=== PATIENT | female | born 1940 | race Caucasian/White ===

== ENCOUNTER 2017-05-06 07:30 | Inpatient (IN) | payer MEDICARE, BC ==
[~2017-05-06] VITALS: Ht 162.6 cm; Wt 95.3 kg
[2017-06-16] MEDS ORDERED: GABA100C4 PO (11:51)
[2017-06-16] MEDS ORDERED: VITA500T83 PO (11:51)
[2017-06-16] MEDS ORDERED: METF500T PO (11:51)
[2017-06-16] MEDS ORDERED: PRAV40TA2 PO (11:51)
[2017-06-16] MEDS ORDERED: OCUVTAB4 PO (11:51)
[2017-06-16] MEDS ORDERED: DILT120C9 PO (11:51)
[2017-06-16] MEDS ORDERED: VENTAER INH (11:51)
[2017-06-16] MEDS ORDERED: MONT10TA4 PO (11:51)
[2017-06-16] MEDS ORDERED: IRBE300T11 PO (11:51)
[2017-06-16] MEDS ORDERED: OMEGCAP PO (11:51)
[2017-06-16] MEDS ORDERED: HYDR25TA5 PO (11:51)
[2017-06-16] MEDS ORDERED: CALC600T10 PO (11:51)
[2017-06-17] MEDS ORDERED: CHLORHEXIDINE GLUCONATE 4% SOLN 120 ML BTL TOPICAL SCH (06:00)
[2017-06-17] MEDS ORDERED: SODIUM CHLORID 0.9% 500 ML IV PRN (06:00)
[2017-06-17] MEDS ORDERED: VANCOMYCIN 1 GM/200 ML INJ 200 ML IV SCH (06:00)
[2017-06-17] MEDS ORDERED: CHLORHEXIDINE GLUCONATE 2 % 1 PACK (2 CLOTHS) TOPICAL PRN (06:00)
[2017-06-17] MEDS ORDERED: POVIDONE IODINE 5% (ANTISEPSIS KIT) 4 APPLICATIONS EACH NARE PRN (06:00)
[2017-06-17] MEDS: LACTATED RINGER'S 1000 ML IV PRN ×2 (06:30→20:53)
[2017-06-17] MEDS ORDERED: PROPOFOL 500 MG/50 ML INJ 250 ML ONE (07:13)
[2017-06-17] MEDS ORDERED: ACETAMINOPHEN 1000 MG/100 ML 100 ML IV ONE (07:13)
[2017-06-17] MEDS ORDERED: GENTAMICIN SULFATE 80 MG/2 ML VIAL ONE (07:17)
[2017-06-17] MEDS ORDERED: ceFAZolin 2 GM PREMIX 50 ML IV SCH (08:00)
[2017-06-17] MEDS ORDERED: ceFAZolin INJ 1,000 MG VIAL IV ONE ×4 (09:17→17:03)
[2017-06-17] MEDS ORDERED: SUCCINYLCHOLINE CHLORIDE 100 MG/5 ML SYRINGE IV PUSH ONE (12:00)
[2017-06-17] MEDS ORDERED: PHENYLEPHRINE HCL 10 MG/ML VIAL IV ONE (12:00)
[2017-06-17] MEDS ORDERED: PHENYLEPH/NS 1000 MCG/10 ML SYR IV ONE (12:00)
[2017-06-17] MEDS ORDERED: LIDOCAINE HCL 1% PF 5 ML SYRINGE OTHER ONE (12:00)
[2017-06-17] MEDS ORDERED: PROPOFOL 200 MG/20 ML AMP IV ONE (12:00)
[2017-06-17] MEDS ORDERED: ROCURONIUM INJ 50 MG/5 ML SYRINGE IV PUSH ONE (12:00)
[2017-06-17] MEDS ORDERED: ONDANSETRON HCL 4 MG/2 ML VIAL IV ONE (12:00)
[2017-06-17] MEDS ORDERED: ePHEDrine/NS 25 MG/5 ML SYRINGE IV ONE (12:00)
[2017-06-17] MEDS ORDERED: LACTATED RINGER'S 1000 ML INJ 4,000 ML IV ONE (12:00)
[2017-06-17] MEDS ORDERED: DEXAMETHASONE SOD PHOS 4 MG/ML VIAL IV ONE ×2 (12:00)
[2017-06-17] MEDS ORDERED: PROPOFOL 500 MG/50 ML INJ 150 ML ONE (12:23)
[2017-06-17] MEDS ORDERED: ceFAZolin 1,000 MG/NS 100 ML IV ONE ×4 (14:00→18:15)
[2017-06-17 14:06] LABS: HEMATOCRIT 23.7 % (35.0-46.0); HEMOGLOBIN 8.1 GM/DL (11.6-15.3)
[2017-06-17] MEDS ORDERED: VANCOMYCIN HCL 1000 MG VIAL ONE (14:40)
[2017-06-17] MEDS ORDERED: PROPOFOL 200 MG/20 ML AMP ONE (18:47)
[2017-06-17] MEDS ORDERED: MIDAZOLAM HCL 2 MG/2 ML VIAL ONE (18:57)
[2017-06-17 19:30] VITALS: O2SAT 98
[2017-06-17] MEDS ORDERED: ONDANSETRON HCL 4 MG/2 ML VIAL IV PUSH PRN (19:30)
[2017-06-17] MEDS ORDERED: MORPHINE SULFATE 30 MG/30 ML PCA IV SCH (19:30)
[2017-06-17] MEDS ORDERED: Post-op Orders (for Pharmacy) XX ONE (19:30)
[2017-06-17] MEDS ORDERED: BISACODYL 10 MG SUPP RECTAL PRN (19:30)
[2017-06-17] MEDS ORDERED: SODIUM CHLORIDE 0.9% FLUSH 10 ML FLUSH IV FLUSH PRN (19:30)
[2017-06-17] MEDS ORDERED: CYCLOBENZAPRINE HCL 10 MG TAB PO PRN (19:30)
[2017-06-17] MEDS ORDERED: NALOXONE HCL 0.4 MG/ML AMP IV PUSH PRN (19:30)
--- NOTE | 2017-06-17 19:33 | HHI.PR ---
cc: Breanna Alfaro MD Immediate Post Op Note Procedure Date: Jun 17, 2017 Pre Op Diagnosis: L5-S1 grade IV spondylolisthesis with significant central and foraminal stenosis L4-L5 grade II spondylolisthesis with significant central and foraminal stenosis L3-L4 central and foraminal stenosis Bilateral lower extremity radiculopathy Post Op Diagnosis: L5-S1 grade IV spondylolisthesis with significant central and foraminal stenosis L4-L5 grade II spondylolisthesis with significant central and foraminal stenosis L3-L4 central and foraminal stenosis Bilateral lower extremity radiculopathy Surgeon: Breanna Alfaro Marketing Manager(s): Cam Yancey Procedure: L3-L5 laminectomy, facetectomy and foraminotomies L5-S1 Arias laminectomy L3-L4, L4-L5 TLIF with interbody cage L3-S1 instrumented posterolateral fusion Complications: none Specimen(s) removed: none Estimated blood loss: 1500cc Anesthesia: General Drains: Hemovac IVF Patient to: PACU Patient Condition: Good Implant/Devices: SEE IMPLANT LOG (if applicable) Date/Time of Procedure: SEE SURGICAL CARE RECORD Breanna Alfaro MD Jun 17, 2017 19:33
[2017-06-17] MEDS ORDERED: *morphine SULFATE 4 MG/ML PERIprocedure ONLY ONE (19:53)
--- NOTE | 2017-06-17 20:24 | RADRPT ---
EXAM DATE/TIME: 06/17/2017 20:01 [facility] COMPARISON: No previous studies available for comparison. INDICATIONS : Post ET tube placement. MEDICAL HISTORY : None. SURGICAL HISTORY : None. ENCOUNTER: Initial ACUITY: 1 day PAIN SCORE: 0/10 LOCATION: Bilateral chest FINDINGS: Consolidation and small effusion seen at the left lung base. Right lung is clear. No pneumothorax. Heart size within normal limits. Endotracheal tube tip is approximately 4 cm above the cat. CONCLUSION: Consolidation and small effusion of the left lung base. Endotracheal tube tip is approximately 4 cm a timmy the cat. Rufino Gonzalez MD on June 17, 2017 at 20:21 Board Certified Radiologist. This report was verified electronically.
[2017-06-17 20:26] LABS: AUTOMATED NEUTROPHIL # 12.7 TH/MM3 (1.8-7.7); BASOPHIL % 0.2 % (0.0-2.0); HEMOGLOBIN 10.1 GM/DL (11.6-15.3); LYMPH % 8.2 % (9.0-44.0); LYMPHOCYTE # 1.2 TH/MM3 (1.0-4.8); MEAN CELL VOLUME 88.4 FL (80.0-100.0); MEAN CORPUSCULAR HEMOGLOBIN 29.7 PG (27.0-34.0); MEAN CORPUSCULAR HGB CONC 33.6 % (32.0-36.0); MEAN PLATELET VOLUME 9.1 FL (7.0-11.0); MONO % 5.1 % (0.0-8.0); MONOCYTE # 0.8 TH/MM3 (0-0.9); NEUT % 86.5 % (16.0-70.0); PLATELET COUNT 147 TH/MM3 (150-450); RED CELL DISTRIBUTION WIDTH 14.3 % (11.6-17.2); WHITE BLOOD COUNT 14.7 TH/MM3 (4.0-11.0)
[2017-06-17 20:55] LABS: INTERNATIONAL NORMALIZED RATIO 1.1 RATIO; PROTHROMBIN TIME - PATIENT 10.7 SEC (9.8-11.6)
--- NOTE | 2017-06-17 20:55 | RADRPT ---
EXAM DATE/TIME: 06/17/2017 09:57 [facility] COMPARISON: No previous studies available for comparison. INDICATIONS : L3-S1 Posterior lumbar fusion. MEDICAL HISTORY : Hypertension. Diabetes mellitus type II. Arthritis. Asthma. SURGICAL HISTORY : Tonsillectomy. Cholecystectomy. ENCOUNTER: Initial ACUITY: 1 day PAIN SCORE: 10/10 LOCATION: Lumbar spine. FINDINGS: Discectomy and fusion procedure with posterior instrumentation seen from L3-S1. There is grade 2 spon dylolisthesis at L5/S1, presumably nonacute. Alignment is otherwise normal. Interbody instrumentation seen at L3/L4 and L4/L5. CONCLUSION: Lumbosacral fusion as above without evidence of acute complication. Grade 2 spondylolisthesis at L5/S 1. Rufino Gonzalez MD on June 17, 2017 at 20:51 Board Certified Radiologist. This report was verified electronically.
[2017-06-17] MEDS: SODIUM CHLORIDE 0.9% FLUSH 10 ML FLUSH IV FLUSH SCH (21:00)
[2017-06-17] MEDS ORDERED: DO NOT ADM ANY ANTICOAGULANT DRUGS PRN (21:15)
[2017-06-17] MEDS: LACTATED RINGER'S 1000 ML INJ 1,000 ML IV SCH (21:15)
[2017-06-17 22:00] VITALS: PULSE 80
[2017-06-17] MEDS: PCA - TOTAL MG MORPHINE DELIVERED PER SHIFT SCH (22:00)
--- NOTE | 2017-06-17 22:38 | PD.CONS ---
HPI Service Critical Care Medicine Consult Requested By Primary Care Physician Abhishek Earl MD History of Present Illness 77-year-old female with past medical history of diabetes type 2, hypertension, dyslipidemia underwent L3-L5 laminectomy, facetectomy and foraminotomies L5-S1 Arias laminectomy L3-L4, L4-L5 TLIF with interbody cage, and L3-S1 instrumented posterolateral fusion. She was successfully extubated in the PACU however due to prolonged anesthesia in a prone position and significant facial edema she is admitted to ICU postoperatively for airway management and observation. Review of Systems Constitutional: DENIES: Diaphoretic episodes, Fatigue, Fever, Weight gain, Weight loss, Chills, Dizziness, Change in appetite, Night Sweats Endocrine: DENIES: Abnorml menstrual pattern, Heat/cold intolerance, Polydipsia , Polyuria, Polyphagia Eyes: DENIES: Blurred vision, Diplopia, Eye inflammation, Eye pain, Vision loss , Photosensitivity, Double Vision Ears, nose, mouth, throat: DENIES: Tinnitus, Hearing loss, Vertigo, Nasal discharge, Oral lesions, Throat pain, Hoarseness, Ear Pain, Running Nose, Epistaxis, Sinus Pain, Toothache, Odynophagia Respiratory: DENIES: Apneas, Cough, Snoring, Wheezing, Hemoptysis, Sputum production, Shortness of breath Cardiovascular: DENIES: Chest pain, Palpitations, Syncope, Dyspnea on Exertion , PND, Lower Extremity Edema, Orthopnea, Claudication Gastrointestinal: DENIES: Abdominal pain, Black stools, Bloody stools, Constipation, Diarrhea, Nausea, Vomiting, Difficulty Swallowing, Anorexia Genitourinary: DENIES: Abnormal vaginal bleeding, Dysmenorrhea, Dyspareunia, Sexual dysfunction, Urinary frequency, Urinary incontinence, Urgency, Hematuria , Dysuria, Nocturia, Vaginal discharge Musculoskeletal: DENIES: Joint pain, Muscle aches, Stiffness, Joint Swelling, Back pain, Neck pain Integumentary: DENIES: Abnormal pigmentation, Pruritus, Rash, Nail changes, Breast masses, Breast skin changes, Nipple discharge Hematologic/lymphatic: DENIES: Bruising, Lymphadenopathy Immunologic/allergic: DENIES: Eczema, Urticaria Neurologic: COMPLAINS OF: Abnormal gait, Poor Balance, DENIES: Headache, Localized weakness, Paresthesias, Seizures, Speech Problems, Tremor Psychiatric: DENIES: Anxiety, Confusion, Mood changes, Depression, Hallucinations, Agitation, Suicidal Ideation, Homicidal Ideation, Delusions Past Family Social History Allergies: Coded Allergies: Beta-Blockers (Beta-Adrenergic Bloc (Verified Allergy, Severe, Rash, ) amoxicillin (Verified Allergy, Severe, ITCHING, RASH, 06/17/17) codeine (Verified Allergy, Severe, ITCHING, RASH, THROAT CLOSES, 06/17/17) hydrocodone (Verified Allergy, Severe, ITCHING, RASH, THROAT CLOSES, ) levofloxacin (Verified Allergy, Severe, Rash, 06/17/17) quinapril (Verified Allergy, Severe, COUGH, ASTHMA ATTACK, 06/17/17) scallops (Verified Allergy, Severe, 06/17/17) acebutolol (Verified Adverse Reaction, Severe, ASTHMA ATTACK, 06/17/17) atenolol (Verified Adverse Reaction, Severe, ASTHMA ATTACK, 06/17/17) atorvastatin (Verified Adverse Reaction, Severe, MYALGIAS, 06/17/17) betaxolol (Verified Adverse Reaction, Severe, ASTHMA ATTACK, 06/17/17) carvedilol (Verified Adverse Reaction, Severe, ASTHMA ATTACK, 06/17/17) dabigatran etexilate (Verified Adverse Reaction, Severe, STOMACH UPSET, ) labetalol (Verified Adverse Reaction, Severe, ASTHMA ATTACK, 06/17/17) metoprolol (Verified Adverse Reaction, Severe, ASTHMA ATTACK, 06/17/17) nebivolol (Verified Adverse Reaction, Severe, ASTHMA ATTACK, 06/17/17) pindolol (Verified Adverse Reaction, Severe, ASTHMA ATTACK, 06/17/17) propranolol (Verified Adverse Reaction, Severe, ASTHMA ATTACK, 06/17/17) sotalol (Verified Adverse Reaction, Severe, ASTHMA ATTACK, 06/17/17) timolol (Verified Adverse Reaction, Severe, ASTHMA ATTACK, 06/17/17) oxycodone (Verified Adverse Reaction, Intermediate, Itching, 06/17/17) Past Medical History Hypertension Dyslipidemia Type 2 diabetes Asthma Osteoarthritis Past Surgical History Cholecystectomy Right total knee arthroplasty Tonsillectomy Reported Medications Reported Meds & Active Scripts Active Reported Gabapentin 100 Mg Cap 100 Mg PO TID Vitamin C ER (Ascorbic Acid) 500 Mg Zander 1,000 Mg PO Preservision Areds (Multiple Vitamins W/ Minerals) 1 Tab 1 Tab PO BID Ewen-3 Fish Oil/Vitamin (Fish Oil-Cholecalciferol) 1,000-1,000 Mg Cap 1 Cap PO BID Diltiazem ER 12 HR (Diltiazem HCl) 120 Mg Caper 240 Mg PO BID Calcium + D3 (Calcium Carbonate-Cholecalciferol) 600-200 Mg-Unit Tab 1,200 Tab PO BID Ventolin Hfa 18 GM Inh (Albuterol Sulfate) 90 Mcg/Act Aer 2 Puff INH Q4-6H PRN Pravastatin 40 Mg Tab 40 Mg PO HS Montelukast (Montelukast Sodium) 10 Mg Tab 10 Mg PO DAILY Metformin (Metformin HCl) 500 Mg Tab 500 Mg PO DAILY With a meal Irbesartan 300 Mg Tab 300 Mg PO DAILY Hydrochlorothiazide 25 Mg Tab 25 Mg PO DAILY Active Ordered Medications Current Medications Medications (Trade) Dose Ordered Sig/Vanesa Route PRN Reason Start Time Stop Time Status Last Admin Dose Admin Chlorhexidine Gluconate (Chlorhexidine 2% Cloth) 3 pack SUPERVISOR SMOKE CONTROL PRN TOPICAL SEE LABEL COMMENTS 06/17/17 06:00 06/20/17 05:59 06/17/17 06:00 Sodium Chloride (NS Flush) 2 ml UNSCH PRN IV FLUSH FLUSH AFTER USING IV ACCESS 06/17/17 19:30 Sodium Chloride (NS Flush) 2 ml BID IV FLUSH 06/17/17 21:00 06/17/17 21:00 Cefazolin Sodium 1000 mg/Sodium Chloride 100 ml @ 200 mls/hr Q8H IV 06/18/17 01:00 06/18/17 17:29 Multivitamins/ Minerals Therapeutic (Theragran M Tab) 1 tab BID PO 06/18/17 09:00 08/17/17 08:59 Ondansetron HCl (Zofran Inj) 4 mg Q6H PRN IV PUSH NAUSEA OR VOMITING 06/17/17 19:30 Docusate Sodium (Colace) 100 mg BID PO 06/18/17 21:00 Bisacodyl (Dulcolax Supp) 10 mg DAILY PRN RECTAL CONSTIPATION 06/17/17 19:30 Naloxone HCl (Narcan Inj) 0.4 mg UNSCH PRN IV PUSH RESPIRATORY RATE LESS THAN 10 06/17/17 19:30 Morphine Sulfate (Morphine 1 Mg/ ml ANIMAL THERAPIST) 30 mg UNSCH IV 4/24/18 19:30 ANIMAL THERAPIST Dosage Infused (Pha) 1 Q8HR .XX 06/17/17 22:00 06/17/17 22:00 Cyclobenzaprine HCl (Flexeril) 10 mg Q8H PRN PO SPASM 06/17/17 19:30 Miscellaneous Information ALL NURSING DEPARTME... UNSCH PRN .XX SEE LABEL COMMENTS 06/17/17 21:15 06/18/17 21:14 Lactated Ringer's 1,000 ml @ 100 mls/hr Q10H IV 06/17/17 22:00 06/17/17 21:15 Albuterol Sulfate (Proair Hfa Inh) 2 puff Q6H PRN INH SHORTNESS OF BREATH 06/17/17 22:45 Gabapentin (Neurontin) 100 mg TID PO 06/18/17 09:00 Montelukast Sodium (Singulair) 10 mg DAILY PO 06/18/17 09:00 Pravastatin Sodium (Pravachol) 40 mg HS PO 06/18/17 21:00 Calcium/Vitamin D (Oscal-D 250-125) 500 mg BID PO 06/18/17 09:00 Diltiazem HCl (Cardizem Cd) 240 mg BID PO 06/17/17 23:00 Losartan Potassium (Cozaar) 100 mg DAILY PO 06/18/17 09:00 Dextrose (D50w (Vial) Inj) 50 ml UNSCH PRN IV PUSH HYPOGLYCEMIA-SEE COMMENTS 06/17/17 22:45 Glucagon (Glucagon Inj) 1 mg UNSCH PRN OTHER HYPOGLYCEMIA-SEE COMMENTS 06/17/17 22:45 Insulin Aspart (NovoLOG SUPPLEMENTAL SCALE) 1 ACHS SLIDING SCALE SQ 06/18/17 08:00 Family History Family history positive of cancer, CVA and heart disease Social History Remote history of smoking, currently does not smoke. She occasionally drinks alcohol. She denies illicit substance abuse Physical Exam Vital Signs Vital Signs Date Time Temp Pulse Resp B/P (MAP) Pulse Ox O2 Delivery O2 Flow Rate FiO2 06/17/17 20:15 Mask 40 06/17/17 19:35 97.8 81 20 92/53 (66) 97 Mechanical Ventilator 50 137/47 (77) 06/17/17 19:30 98 50 06/17/17 06:48 98.5 75 18 141/67 (91) 97 Physical Exam GENERAL: Well-nourished, well-developed patient. SKIN: Warm and dry. HEAD: Normocephalic. EYES: No scleral icterus. No injection or drainage. NECK: Supple, trachea midline. No JVD or lymphadenopathy. CARDIOVASCULAR: Regular rate and rhythm without murmurs, gallops, or rubs. RESPIRATORY: Breath sounds equal bilaterally. No accessory muscle use. GASTROINTESTINAL: Abdomen soft, non-tender, nondistended. MUSCULOSKELETAL: No cyanosis, or edema. BACK: Nontender without obvious deformity. NEURO EXAM: GCS: 15 Mental Status: The patient is alert and oriented to person, place, and time with normal speech. Cranial Nerves: Visual acuity intact bilaterally. Visual alex normal in all quadrants. Pupils are round, reactive to light. Extraocular movements are intact without ptosis. Hearing is normal bilaterally. Voice is normal. Tongue protrudes midline and moves symmetrically. Laboratory Laboratory Tests Test 06/17/17 13:52 06/17/17 17:45 06/17/17 19:45 06/17/17 20:00 Hemoglobin 8.1 10.1 Hematocrit 23.7 30.0 Blood Gas Puncture Site ART LINE ART LINE Blood Gas Patient Temperature 98.6 98.6 Blood Gas HCO3 23 20 Blood Gas Base Excess -2.1 -5.7 Blood Gas Oxygen Saturation 96 96 Arterial Blood pH 7.35 7.27 Arterial Blood Partial Pressure CO2 42 45 Arterial Blood Partial Pressure O2 166 116 Arterial Blood Oxygen Content 10.3 14.8 Arterial Blood Carboxyhemoglobin 1.2 0.8 Arterial Blood Methemoglobin 1.6 1.5 Blood Gas Hemoglobin 7.4 10.9 Oxygen Delivery Device VENTILATOR VENTILATOR Blood Gas Ventilator Setting SEE COMMENTS Blood Gas Inspired Oxygen 50 White Blood Count 14.7 Red Blood Count 3.40 Mean Corpuscular Volume 88.4 Mean Corpuscular Hemoglobin 29.7 Mean Corpuscular Hemoglobin Concent 33.6 Red Cell Distribution Width 14.3 Platelet Count 147 Mean Platelet Volume 9.1 Neutrophils (%) (Auto) 86.5 Lymphocytes (%) (Auto) 8.2 Monocytes (%) (Auto) 5.1 Eosinophils (%) (Auto) 0.0 Basophils (%) (Auto) 0.2 Neutrophils # (Auto) 12.7 Lymphocytes # (Auto) 1.2 Monocytes # (Auto) 0.8 Eosinophils # (Auto) 0.0 Basophils # (Auto) 0.0 CBC Comment DIFF FINAL Differential Comment Prothrombin Time 10.7 Prothromb Time International Ratio 1.1 Fibrinogen 226 Test 06/17/17 22:00 Result Diagram: 06/17/171999 Imaging Last 24 hours Impressions Lumbar Spine X-Ray 06/17/17 0000 Signed Impressions: Service Date/Time: Saturday, June 17, 2017 09:57 - CONCLUSION: Lumbosacral fusion as above without evidence of acute complication. Grade 2 spondylolisthesis at L5/S1. Rufino Gonzalez MD Chest X-Ray 06/17/17 0000 Signed Impressions: Service Date/Time: Saturday, June 17, 2017 20:01 - CONCLUSION: Consolidation and small effusion of the left lung base. Endotracheal tube tip is approximately 4 cm above the cat. Rufino Gonzalez MD Assessment and Plan Assessment and Plan Hypertension -Resume losartan and diltiazem Asthma -Montelukast Sodium -Albuterol Sulfate Diabetes type 2 -Hold metformin while in the ICU -Insulin sliding scale Spinal stenosis -Status post laminectomy -Cyclobenzaprine -Morphine Sulfate as needed -Gabapentin Dyslipidemia -Pravastatin DVT GI prophylaxis -Abdulkadir's and SCDs -Pharmacological DVT prophylaxis per surgeon -Early aggressive mobilization -ADA diet Critical Care: The total critical care time was 35 minutes. Time to perform other separately billable procedures was not included in the critical care time. Tree Rodriguez MD Jun 17, 2017 10:38 pm
[2017-06-17] MEDS ORDERED: DEXTROSE 50% IN WATER 50 ML VIAL(D50) IV PUSH PRN (22:45)
[2017-06-17] MEDS ORDERED: ALBUTEROL SULFATE 90 MCG/ACT HFA 8 GM INHALER INH PRN (22:45)
[2017-06-17] MEDS ORDERED: GLUCAGON 1 MG/ML VIAL OTHER PRN (22:45)
[2017-06-17] MEDS: DILTIAZEM-CD 240 MG CAP ER PO SCH (23:32)
[2017-06-18] VITALS (10 sets, daily range): BP systolic 106–133; BP diastolic 41–62; PULSE 70–94; RESP 18–24; TEMP 97.8–98.6; O2SAT 58–99
[2017-06-18 05:08] LABS: AUTOMATED NEUTROPHIL # 8.9 TH/MM3 (1.8-7.7); BASOPHIL % 0.1 % (0.0-2.0); HEMATOCRIT 29.3 % (35.0-46.0); HEMOGLOBIN 10.1 GM/DL (11.6-15.3); LYMPH % 5.2 % (9.0-44.0); LYMPHOCYTE # 0.5 TH/MM3 (1.0-4.8); MEAN CELL VOLUME 87.6 FL (80.0-100.0); MEAN CORPUSCULAR HGB CONC 34.3 % (32.0-36.0); MEAN PLATELET VOLUME 9.3 FL (7.0-11.0); MONOCYTE # 0.3 TH/MM3 (0-0.9); NEUT % 91.7 % (16.0-70.0); PLATELET COUNT 136 TH/MM3 (150-450); RED BLOOD COUNT 3.35 MIL/MM3 (4.00-5.30); RED CELL DISTRIBUTION WIDTH 14.2 % (11.6-17.2); WHITE BLOOD COUNT 9.7 TH/MM3 (4.0-11.0)
[2017-06-18 05:29] LABS: ALBUMIN 2.3 GM/DL (3.4-5.0); BICARBONATE 21.3 MEQ/L (21.0-32.0); CALCIUM 7.1 MG/DL (8.5-10.1); CALCIUM-PROTEIN CORRECTED 8.3 MG/DL (8.5-10.1); CREATININE 1.47 MG/DL (0.50-1.00); MAGNESIUM 2.2 MG/DL (1.5-2.5); PHOSPHORUS 3.4 MG/DL (2.5-4.9); TOTAL BILIRUBIN ADULT 0.2 MG/DL (0.2-1.0); TOTAL PROTEIN 4.9 GM/DL (6.4-8.2)
[2017-06-18] MEDS: PCA - TOTAL MG MORPHINE DELIVERED PER SHIFT SCH ×3 (06:00→20:10)
[2017-06-18] MEDS: LACTATED RINGER'S 1000 ML INJ 1,000 ML IV SCH ×2 (07:09→18:00)
--- NOTE | 2017-06-18 07:29 | PD.ORT.PN ---
Subjective Subjective Remarks Patient resting comfortably this morning. States her pain is well-controlled. She was successfully extubated in the postop area. She has not been mobilized yet Objective Vitals Vital Signs Date Time Temp Pulse Resp B/P (MAP) Pulse Ox O2 Delivery O2 Flow Rate FiO2 06/18/17 06:00 16 06/18/17 06:00 82 06/18/17 04:00 98.3 84 21 126/57 (80) 94 Arterial Line 06/18/17 04:00 84 06/18/17 02:00 92 06/18/17 00:00 86 06/18/17 00:00 98.6 86 18 133/62 (85) 96 06/17/17 22:00 80 06/17/17 22:00 19 06/17/17 21:30 97.5 78 20 99 Simple Mask 6 06/17/17 21:15 83 22 98/50 (66) 100 Simple Mask 6 101/34 (56) 06/17/17 21:00 78 22 116/58 (77) 100 Mechanical Ventilator 40 110/76 (87) 06/17/17 20:45 78 24 130/63 (85) 100 Mechanical Ventilator 40 121/47 (71) 06/17/17 20:30 79 28 122/58 (79) 100 Mechanical Ventilator 40 113/41 (65) 06/17/17 20:30 40 06/17/17 20:15 Mask 40 06/17/17 20:15 76 28 115/54 (74) 100 Mechanical Ventilator 50 106/36 (59) 06/17/17 20:00 75 24 108/53 (71) 99 Mechanical Ventilator 50 101/37 (58) 06/17/17 19:45 75 21 130/63 (85) 98 Mechanical Ventilator 50 128/46 (73) 06/17/17 19:35 97.8 81 20 92/53 (66) 97 Mechanical Ventilator 50 137/47 (77) 06/17/17 19:35 50 06/17/17 19:30 98 50 I/O 06/17/17 06/17/17 06/17/17 06/18/17 06/18/17 06/18/17 07:00 15:00 23:00 07:00 15:00 23:00 Intake Total 5666 ml 200 ml 1060 ml Output Total 2340 ml 635 ml Balance 3326 ml -435 ml 1060 ml Intake Oral 200 ml IV Total 500 ml 1060 ml Autotransfusion 756 ml Packed Cells 900 ml Blood Product IV Normal Saline Flush 10 ml Other 3500 ml Output Urine Total 750 ml 400 ml Drainage Total 90 ml 235 ml Estimated Blood Loss 1500 ml # Bowel Movements 0 Result Diagram: 06/18/17 0450 06/18/17 0450 Other Results Laboratory Tests Test 06/17/17 20:00 Prothromb Time International Ratio 1.1 RATIO Prothrombin Time 10.7 SEC (9.8-11.6) Objective Remarks awake, alert, no acute distress Bilateral lower extremities: 5 out of 5 strength EHL, FHL, tib ant, gastrocs, hamstrings and quads. Sensation appears grossly intact. Brisk cap refill. Negative Homans. Urinary catheter remains in place Dressing intact over her spine and drain remains in place. Assessment & Plan Assessment and Plan 77-year-old female, postop day 1 status post L3-S1 decompression with instrumented fusion 1. Plan for mobilization starting today. When patient is out of bed should have her back brace on. Patient can sit on edge of bed to put brace on. No significant bending, lifting or twisting. PT for mobilization 2. Montanez to remain in place until patient is able to mobilize hopefully later today versus tomorrow 3. Drain to remain in place today. Likely plan for removal tomorrow pending output 4. Mechanical DVT prophylaxis. No chemical anticoagulation given recent spine surgery 5. Hemoglobin stable this morning after transfusion yesterday. Will monitor. 6. Will continue CHEMISTRY TUTOR today, with likely transition to oral tomorrow 7. Appreciate ICU management. Okay for transfer to orthopedic/neuro floor once felt stable by ICU. Breanna Alfaro MD Jun 18, 2017 07:29
[2017-06-18] MEDS: GABAPENTIN 100 MG CAP PO SCH ×3 (08:52→17:59)
[2017-06-18] MEDS: LOSARTAN 50 MG TAB PO SCH (08:53)
[2017-06-18] MEDS: DILTIAZEM-CD 240 MG CAP ER PO SCH ×2 (08:53→20:09)
[2017-06-18] MEDS: MONTELUKAST SODIUM 10 MG TAB PO SCH (08:53)
[2017-06-18] MEDS: MULTIVITAMINS/MINERALS THERAPEUTIC TAB PO SCH ×2 (08:53→20:09)
[2017-06-18] MEDS: CALCIUM/VITAMIN D 250 MG/125 U TAB PO SCH ×2 (08:54→20:09)
[2017-06-18] MEDS: SODIUM CHLORIDE 0.9% FLUSH 10 ML FLUSH IV FLUSH SCH ×2 (08:54→20:09)
[2017-06-18] MEDS ORDERED: NON-FORMULARY DRUG (Fish Oil-Cholecalciferol (Omega-3 Fish Oil/Vitamin) 1 CAP) PO SCH (09:00)
[2017-06-18] MEDS: INSULIN ASPART SUPPLEMENTAL SCALE SQ SCH ×3 (12:00→20:09)
--- NOTE | 2017-06-18 16:30 | HHI.CCPN ---
Subjective Remarks/Hospital Course 06/17: 77-year-old female with past medical history of diabetes type 2, hypertension, dyslipidemia underwent L3-L5 laminectomy, facetectomy and foraminotomies L5-S1 Arias laminectomy L3-L4, L4-L5 TLIF with interbody cage, and L3-S1 instrumented posterolateral fusion. She was successfully extubated in the PACU however due to prolonged anesthesia in a prone position and significant facial edema she is admitted to ICU postoperatively for airway management and observation. 06/18: On room air this morning. Breathing comfortably. Objective Vital Signs Date Time Temp Pulse Resp B/P (MAP) Pulse Ox O2 Delivery O2 Flow Rate FiO2 06/18/17 10:00 94 06/18/17 09:30 97 21 06/18/17 08:00 98.3 21 125/41 (69) 06/18/17 07:00 Room Air 06/17/17 21:30 6 Intake and Output 06/18/17 06/18/17 06/19/17 08:00 16:00 00:00 Intake Total 1260 ml Output Total 635 ml Balance 625 ml Result Diagram: 06/18/17 0450 06/18/17 0450 Other Results Laboratory Tests Test 06/17/17 17:45 06/17/17 19:45 Blood Gas Puncture Site ART LINE ART LINE Blood Gas Patient Temperature 98.6 98.6 Blood Gas HCO3 23 mmol/L (22-26) 20 mmol/L (22-26) Blood Gas Base Excess -2.1 mmol/L (-2-2) -5.7 mmol/L (-2-2) Blood Gas Oxygen Saturation 96 % (90-100) 96 % (90-100) Arterial Blood pH 7.35 (7.380-7.420) 7.27 (7.380-7.420) Arterial Blood Partial Pressure CO2 42 mmHg (38-42) 45 mmHg (38-42) Arterial Blood Partial Pressure O2 166 mmHg (61-120) 116 mmHg (61-120) Arterial Blood Oxygen Content 10.3 Vol % (12.0-20.0) 14.8 Vol % (12.0-20.0) Arterial Blood Carboxyhemoglobin 1.2 % (0-4) 0.8 % (0-4) Arterial Blood Methemoglobin 1.6 % (0-2) 1.5 % (0-2) Blood Gas Hemoglobin 7.4 G/DL (12.0-16.0) 10.9 G/DL (12.0-16.0) Oxygen Delivery Device VENTILATOR VENTILATOR Blood Gas Ventilator Setting SEE COMMENTS Blood Gas Inspired Oxygen 50 % Imaging Last 24 hours Impressions Lumbar Spine X-Ray 06/17/17 0000 Signed Impressions: Service Date/Time: Saturday, June 17, 2017 09:57 - CONCLUSION: Lumbosacral fusion as above without evidence of acute complication. Grade 2 spondylolisthesis at L5/S1. Rufino Gonzalez MD Chest X-Ray 06/17/17 0000 Signed Impressions: Service Date/Time: Saturday, June 17, 2017 20:01 - CONCLUSION: Consolidation and small effusion of the left lung base. Endotracheal tube tip is approximately 4 cm above the cat. Rufino Gonzalez MD Objective Remarks GENERAL: Well-nourished, well-developed patient. SKIN: Warm and dry. HEAD: Normocephalic. EYES: No scleral icterus. No injection or drainage. NECK: Supple, trachea midline. No JVD or lymphadenopathy. CARDIOVASCULAR: Regular rate and rhythm without murmurs, gallops, or rubs. RESPIRATORY: Breath sounds equal bilaterally. No accessory muscle use. GASTROINTESTINAL: Abdomen soft, non-tender, nondistended. MUSCULOSKELETAL: No cyanosis, or edema. BACK: Nontender without obvious deformity. NEURO EXAM: Awake alert oriented 3, nonfocal grossly A/P Assessment and Plan Hypertension -Resume losartan and diltiazem Asthma -Montelukast Sodium -Albuterol Sulfate Diabetes type 2 -Hold metformin while in the ICU -Insulin sliding scale Spinal stenosis -Status post laminectomy -Cyclobenzaprine -Morphine Sulfate as needed -Gabapentin Dyslipidemia -Pravastatin DVT GI prophylaxis -Abdulkadir's and SCDs -Pharmacological DVT prophylaxis per surgeon -Early aggressive mobilization -ADA diet Patient is breathing comfortably on room air currently without any shortness of breath. Okay to transfer out of ICU to orthopedic floor. Will consult hospitalist for medical management, critical care will be signing off. Please reconsult if needed. Ruben Tanner MD Jun 18, 2017 16:30
[2017-06-18] MEDS ORDERED: DOCUSATE SODIUM 100 MG CAP PO SCH (21:00)
[2017-06-18] MEDS ORDERED: PRAVASTATIN SOD 40 MG TAB PO SCH (21:00)
[2017-06-19] VITALS (7 sets, daily range): BP systolic 109–135; BP diastolic 53–62; PULSE 70–95; RESP 16–18; TEMP 97.1–98.9; O2SAT 94–97
[2017-06-19] MEDS: LACTATED RINGER'S 1000 ML INJ 1,000 ML IV SCH (03:55)
[2017-06-19] MEDS: PCA - TOTAL MG MORPHINE DELIVERED PER SHIFT SCH (05:54)
[2017-06-19] MEDS: INSULIN ASPART SUPPLEMENTAL SCALE SQ SCH ×3 (08:00→20:53)
--- NOTE | 2017-06-19 08:25 | PD.OP ---
cc: Breanna Alfaro MD Operative Report Date of Surgery: Jun 17, 2017 Preoperative Diagnosis: 1. Grade 3/4 spondylolisthesis L5-S1 2. Grade 1 spondylolisthesis L4-5 3. Lumbar spondylosis with radiculopathy 4. Low back pain 5. Lumbar spinal stenosis without neurogenic claudication Postoperative Diagnosis: 1. Grade 3/4 spondylolisthesis L5-S1 2. Grade 1 spondylolisthesis L4-5 3. Lumbar spondylosis with radiculopathy 4. Low back pain 5. Lumbar spinal stenosis without neurogenic claudication Procedure: 1. Laminectomy, facetectomy, and foraminotomy L3-4 and L4-5 2. Arias laminectomy L5-S1 3. Posterior segmental instrumentation with bilateral pedicle screws and rods at L3, L4, L5 and S1 4. Combined transforaminal interbody and posterolateral fusion L3-4 and L4-5, with interbody device 5. Posterolateral fusion L5-S1 6. Placement of allograft, morsellized 7. Placement of autograft, harvested from same incision morsellized Anesthesia: General Surgeon: Breanna Alfaro Software Sales Consultant(s): Dr. Cam Yancey Operation and Findings: EBL: 1500 cc Complications: None Specimens: None Implants: Depuy Expedium 6.0 mm pedicle screws with rods and T-PAL interbody devices Indications for procedure: Patient is a 77-year-old female with persistent and disabling lower extremity radiculopathy with lumbar spondylosis, multilevel spondylolisthesis, and spinal stenosis despite greater than 6 months of nonoperative management including therapy/home exercises, medications, injections, and activity modification. Options of management were discussed with the patient including continued nonoperative management versus operative intervention. Given her significant spondylolisthesis, I recommended a decompression with instrumented fusion. Risks of surgery including but not limited to: Infection, pseudarthrosis, adjacent segment disease, CSF leak, neurologic injury including possible weakness and/or paralysis, hardware malposition or failure, periprosthetic fracture, persistent or worsening symptoms, worsening back pain, medical complications, and other unforeseen complications were all discussed with the patient. At this time the patient wished to proceed with the above-mentioned procedure and I agreed to proceed. Description of procedure: Patient was brought back to the operating room where anesthesia then ensued. A Montanez catheter, extra IV,and arterial line were then placed. Neuromonitoring leads were then placed prior to positioning. Patient was then carefully positioned prone on the operating room table with all bony prominences well padded. Patient was prepped and draped in standard sterile fashion. A timeout was performed to identify the correct patient, sides, sites and procedures to be performed. Appropriate levels, L3-S1 were verified with fluoroscopy and skin markings made. Preoperative antibiotics were given within 1 hour of incision including vancomycin and Ancef. A midline incision was then made with sharp dissection and electrocautery through the skin and subcutaneous tissue down to fascia. The fascia was identified and a small area cleared to allow for later repair. The fascia was incised in line with the skin incision and elevated off of the spinous processes. The paraspinals were carefully elevated off the spinous processes and laminas and deep retractors placed. Continued dissection was performed over L3, L4, L5 and S1 including the laminas , pars, facets and transverse processes along with the sacral ala. Again, levels were verified with fluoroscopy. Hemostasis was achieved throughout this process with electrocautery, aquamantys, and hemostatic agents. I initially turned my attention to placing pedicle screws at L3, L4, L5 and S1 bilaterally. Starting points were initially identified at the midpoint of the transverse process at the lateral aspect of the pars. Partial facetectomies were performed at L3-4, L4-5 and L5-S1 to allow easier access to the starting points. Starting points were created with a 3mm high-speed bur. Each of the starting points were verified on AP fluoroscopy. Then, each pedicle was identified with a Lenke pedicle probe, tapped, and subsequently probed and measured with a ball-tip probe to ensure there were bony confines on every side. Appropriate length pedicle screws were then placed bilaterally at L3, L4 , L5 and S1. These were verified to be in appropriate position on AP and lateral radiographs. Each pedicle screw was then stimulated by neuromonitoring with appropriate thresholds. At this time, I then turned my attention to the decompression starting with the Arias laminectomy. A baby Santana elevator was placed into the L5-S1 facet, first on the left and twisted to try to free up the facet capsule and ligamentum. This was repeated from the right side. As the Arias laminectomy started to elevate from the caudal side, I then placed a Santana into the L4-5 facet bilaterally to free it up more cranially and laterally on both sides. The Arias laminectomy was then removed by Leksell rongeur and Kerrisons. A central decompression was continued with the use of high-speed bur, Leksell rongeur and Kerrisons more cranially along the remaining L5, L4 and L3 laminas. At this time, Dr. Cam Yancey was available to assist with the procedure. Once the central decompression was performed, bilateral lateral recess and foraminal decompression was carried out with the use of high-speed bur and Kerrisons. At this point, a total right L4-L5 facetectomy was performed with the use of a high-speed bur and Leksell rongeur. The exiting L4 nerve root and traversing L5 nerve roots were identified and protected. Hemostasis was achieved with the epidural vessels. An annulotomy was then performed at the L4-5 disc space and subsequent upsized octavio placed into the disc space to allow for disc space prep. The disc space was thoroughly cleaned with pituitaries and curettes. The disc space was irrigated. The disc space was then packed anteriorly with autograft mixed with Vivagen and the appropriate sized cage then inserted into appropriate position and verified on AP and lateral radiographs. This process was then repeated on the right side at L3-4. A total facetectomy was performed with use of a high-speed bur and Leksell rongeur. The exiting L3 nerve root and traversing L4 nerve roots were identified and protected. Hemostasis was achieved with epidural vessels with electrocautery and hemostatic agents. An annulotomy was then performed in the L3-4 disc space. Subsequent octavio were placed into the disc space to allow for disc space prep. Again, the disc space was thoroughly cleaned with pituitaries and curettes. The space was then irrigated. The disc space was then packed anteriorly with autograft mixed with Vivagen and the cage inserted into appropriate position and verified on AP and lateral radiographs. Once the interbody devices were placed at L3-4 and L4-5, the lateral recess and foraminal decompressions were checked bilaterally. Bilaterally, the L3, L4, L5 and S1 nerve roots appeared to be free of compression. At this time, bipolar cautery and hemostatic agents were used to allow for careful hemostasis around the epidural space. Rods were then measured and contoured appropriately to allow for mild reduction of spondylolisthesis at L4-5 and L5-S1. The rods were initially fixed into the pedicle screws at L3 and S1 bilaterally and then carefully reduced down into L4 and L5 to allow reduction. At this time x-rays verified acceptable alignment with mild reduction at L5-S1 and complete reduction of the spondylolisthesis at L4-5. The set caps were final tightened at L3, L4, L5 and S1 bilaterally. The wound was thoroughly irrigated. I then turned my attention to the posterolateral fusion. The transverse processes at L3, L4, L5 and the sacral ala at S1 bilaterally were decorticated and again autograft mixed with Vivagen was placed into the posterolateral gutters. Hemostasis was achieved and retractors removed. A hemovac drain was placed deep to fascia. Vancomycin powder was then placed into the wound. The fascia was then closed with interrupted Vicryl sutures. The subcutaneous tissue was then closed with Vicryl suture and the skin closed with nylon. Sterile dressings were applied. Patient was then carefully placed back supine on hospital bed. Given the duration of the procedure, she did have some noted facial edema and was kept prophylactically intubated until the swelling could reduce. Patient was transferred to the postoperative area in stable condition. It should be noted the patient remained hemodynamically stable without any adverse neuromonitoring changes throughout the entire procedure. Breanna Alfaro MD Jun 19, 2017 08:25
[2017-06-19] MEDS: SODIUM CHLORIDE 0.9% FLUSH 10 ML FLUSH IV FLUSH SCH ×2 (09:00→20:46)
[2017-06-19] MEDS: LOSARTAN 50 MG TAB PO SCH (09:48)
[2017-06-19] MEDS: DILTIAZEM-CD 240 MG CAP ER PO SCH ×2 (09:48→20:49)
[2017-06-19] MEDS: GABAPENTIN 100 MG CAP PO SCH ×2 (09:48→17:54)
[2017-06-19] MEDS: CALCIUM/VITAMIN D 250 MG/125 U TAB PO SCH ×2 (09:48→20:49)
[2017-06-19] MEDS: MONTELUKAST SODIUM 10 MG TAB PO SCH (09:49)
[2017-06-19] MEDS: MULTIVITAMINS/MINERALS THERAPEUTIC TAB PO SCH ×2 (09:49→20:49)
--- NOTE | 2017-06-19 09:56 | HHI.PR ---
Subjective Remarks F/U resp failure. Doing ok on RA dw RN Objective Vitals Vital Signs Date Time Temp Pulse Resp B/P (MAP) Pulse Ox O2 Delivery O2 Flow Rate FiO2 06/19/17 07:53 97.1 77 16 118/59 (78) 97 06/19/17 06:03 98.0 70 16 109/53 (71) 94 06/19/17 05:54 17 06/19/17 00:00 97.9 73 17 110/54 (72) 96 06/18/17 20:10 17 06/18/17 18:00 97.8 72 18 122/58 (79) 58 06/18/17 16:00 98.0 70 20 110/54 (72) 99 06/18/17 16:00 70 06/18/17 14:00 17 06/18/17 12:00 92 06/18/17 12:00 97.8 92 24 106/51 (69) 96 06/18/17 10:00 94 I/O 06/18/17 06/18/17 06/18/17 06/19/17 06/19/17 06/19/17 07:00 15:00 23:00 07:00 15:00 23:00 Intake Total 200 ml 1060 ml 360 ml Output Total 635 ml 210 ml 820 ml Balance -435 ml 1060 ml -210 ml -460 ml Intake Oral 200 ml 360 ml IV Total 1060 ml Output Urine Total 400 ml 650 ml Drainage Total 235 ml 210 ml 170 ml # Bowel Movements 0 0 Result Diagram: 06/18/17 0450 06/18/17 0450 Imaging Last Impressions Lumbar Spine X-Ray 06/17/17 0000 Signed Impressions: Service Date/Time: Saturday, June 17, 2017 09:57 - CONCLUSION: Lumbosacral fusion as above without evidence of acute complication. Grade 2 spondylolisthesis at L5/S1. Rufino Gonzalez MD Chest X-Ray 06/17/17 0000 Signed Impressions: Service Date/Time: Saturday, June 17, 2017 20:01 - CONCLUSION: Consolidation and small effusion of the left lung base. Endotracheal tube tip is approximately 4 cm above the cat. Rufino Gonzalez MD Objective Remarks GENERAL: Well-nourished, well-developed patient. SKIN: Warm and dry. CARDIOVASCULAR: Regular rate and rhythm without murmurs, gallops, or rubs. RESPIRATORY: Breath sounds equal bilaterally. No accessory muscle use. GASTROINTESTINAL: Abdomen soft, non-tender, nondistended. MUSCULOSKELETAL: No cyanosis, or edema. BACK: Nontender without obvious deformity. NEURO EXAM: Awake alert oriented 3, nonfocal grossly A/P Assessment and Plan Hypertension. Stable -Resume losartan and diltiazem Asthma. Stable -Montelukast Sodium -Albuterol Sulfate Diabetes type 2. 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 Counseled regarding narcotic -Gabapentin -Continue PT, wound care and DVT prophylaxis with early ambulation and medicine Dyslipidemia. Stable will hold statin secondary to elevated AST CKD stage 3. Nonoliguric. Will monitor Constipation. Start Hailey-Colace DVT GI prophylaxis -Abdulkadir's and SCDs -Pharmacological DVT prophylaxis per surgeon -Early aggressive mobilization -ADA diet Roland Escobar MD Jun 19, 2017 09:56
[2017-06-19] MEDS ORDERED: traMADol HCL 50 MG TAB PO PRN (10:00)
[2017-06-19] MEDS ORDERED: SENNOSIDES 8.6 MG TAB PO PRN (10:00)
[2017-06-19] MEDS ORDERED: LACTULOSE SYRUP 20 GM/30 ML CUP PO PRN (10:00)
[2017-06-19] MEDS ORDERED: BISACODYL 10 MG SUPP RECTAL PRN (10:00)
[2017-06-19] MEDS ORDERED: DOCUSATE SODIUM 50 MG/SENNA 8.6 MG TAB PO ONE (10:00)
[2017-06-19] MEDS ORDERED: MORPHINE SULFATE 2 MG/ML SYRINGE IV PUSH PRN (10:00)
[2017-06-19] MEDS ORDERED: MAGNESIUM HYDROXIDE SUSP 30 ML CUP PO PRN (10:00)
[2017-06-19 11:03] LABS: AUTOMATED NEUTROPHIL # 7.9 TH/MM3 (1.8-7.7); BASOPHIL % 0.4 % (0.0-2.0); EOSINOPHIL # 0.1 TH/MM3 (0-0.4); EOSINOPHIL % 0.5 % (0.0-4.0); HEMATOCRIT 23.9 % (35.0-46.0); HEMOGLOBIN 8.1 GM/DL (11.6-15.3); LYMPH % 17.8 % (9.0-44.0); LYMPHOCYTE # 1.9 TH/MM3 (1.0-4.8); MEAN CELL VOLUME 89.6 FL (80.0-100.0); MEAN CORPUSCULAR HEMOGLOBIN 30.3 PG (27.0-34.0); MEAN CORPUSCULAR HGB CONC 33.8 % (32.0-36.0); MEAN PLATELET VOLUME 9.4 FL (7.0-11.0); MONO % 6.5 % (0.0-8.0); MONOCYTE # 0.7 TH/MM3 (0-0.9); NEUT % 74.8 % (16.0-70.0); PLATELET COUNT 114 TH/MM3 (150-450); RED BLOOD COUNT 2.67 MIL/MM3 (4.00-5.30); RED CELL DISTRIBUTION WIDTH 14.5 % (11.6-17.2); WHITE BLOOD COUNT 10.5 TH/MM3 (4.0-11.0)
--- NOTE | 2017-06-19 13:22 | PD.ORT.PN ---
Subjective Subjective Remarks Patient resting comfortably. States her pain is well-controlled. Patient has walked 90ft today. Urinating on her own with dover out Objective Vitals Vital Signs Date Time Temp Pulse Resp B/P (MAP) Pulse Ox O2 Delivery O2 Flow Rate FiO2 06/19/17 12:08 97.1 80 18 132/58 (82) 96 06/19/17 07:53 97.1 77 16 118/59 (78) 97 06/19/17 06:03 98.0 70 16 109/53 (71) 94 06/19/17 05:54 17 06/19/17 00:00 97.9 73 17 110/54 (72) 96 06/18/17 20:10 17 06/18/17 18:00 97.8 72 18 122/58 (79) 58 06/18/17 16:00 98.0 70 20 110/54 (72) 99 06/18/17 16:00 70 06/18/17 14:00 17 I/O 06/18/17 06/18/17 06/18/17 06/19/17 06/19/17 06/19/17 07:00 15:00 23:00 07:00 15:00 23:00 Intake Total 200 ml 1060 ml 360 ml Output Total 635 ml 210 ml 820 ml Balance -435 ml 1060 ml -210 ml -460 ml Intake Oral 200 ml 360 ml IV Total 1060 ml Output Urine Total 400 ml 650 ml Drainage Total 235 ml 210 ml 170 ml # Bowel Movements 0 0 Result Diagram: 06/19/17 1024 06/18/17 0450 Objective Remarks awake, alert, no acute distress Bilateral lower extremities: 5 out of 5 strength EHL, FHL, tib ant, gastrocs, hamstrings and quads. Sensation appears grossly intact. Brisk cap refill. Negative Homans. Dressing intact over her spine and drain remains in place. Assessment & Plan Assessment and Plan 77-year-old female, postop day 2 status post L3-S1 decompression with instrumented fusion 1. When patient is out of bed should have her back brace on. Patient can sit on edge of bed to put brace on. No significant bending, lifting or twisting. PT for mobilization 2. Drain to remain in place today. Plan for drain to be removed tomorrow morning. Dressing can be changed at the same time if needed. 3. Mechanical DVT prophylaxis. No chemical anticoagulation given recent spine surgery 4. Hemoglobin dropped this morning, 8.1 Patient with mild SOB with increased activity. Will transfuse 1U PRBC today. Repeat CBC in AM 5. Transition to oral pain meds today. 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 Discharge planning. Patient may be able to be discharged home in the next day or two pending progress. Breanna Alfaro MD Jun 19, 2017 13:21
[2017-06-19] MEDS: traMADol HCL 50 MG TAB PO PRN (17:58)
[2017-06-19] MEDS: DOCUSATE SODIUM 50 MG/SENNA 8.6 MG TAB PO SCH (20:49)
[2017-06-20] VITALS (8 sets, daily range): BP systolic 111–155; BP diastolic 54–67; PULSE 77–88; RESP 16–18; TEMP 98–99.5; O2SAT 94–97
[2017-06-20 07:05] LABS: AUTOMATED NEUTROPHIL # 7.4 TH/MM3 (1.8-7.7); BASOPHIL % 0.5 % (0.0-2.0); EOSINOPHIL # 0.1 TH/MM3 (0-0.4); EOSINOPHIL % 1.1 % (0.0-4.0); HEMATOCRIT 25.5 % (35.0-46.0); HEMOGLOBIN 8.9 GM/DL (11.6-15.3); LYMPH % 16.3 % (9.0-44.0); LYMPHOCYTE # 1.6 TH/MM3 (1.0-4.8); MEAN CELL VOLUME 88.3 FL (80.0-100.0); MEAN CORPUSCULAR HEMOGLOBIN 30.9 PG (27.0-34.0); MEAN CORPUSCULAR HGB CONC 35.1 % (32.0-36.0); MEAN PLATELET VOLUME 9.3 FL (7.0-11.0); MONO % 8.5 % (0.0-8.0); MONOCYTE # 0.8 TH/MM3 (0-0.9); NEUT % 73.6 % (16.0-70.0); PLATELET COUNT 107 TH/MM3 (150-450); RED BLOOD COUNT 2.89 MIL/MM3 (4.00-5.30); RED CELL DISTRIBUTION WIDTH 14.1 % (11.6-17.2)
[2017-06-20 07:29] LABS: ALBUMIN 2.2 GM/DL (3.4-5.0); ALT (GPT) 19 U/L (10-53); AST (GOT) 84 U/L (15-37); BICARBONATE 25.6 MEQ/L (21.0-32.0); BLOOD UREA NITROGEN 31 MG/DL (7-18); CALCIUM 7.8 MG/DL (8.5-10.1); CHLORIDE 106 MEQ/L (98-107); CREATININE 1.16 MG/DL (0.50-1.00); GLOMERULAR FILTRATION RATE 45 ML/MIN (>89); GLUCOSE,RANDOM 131 MG/DL (74-106); MAGNESIUM 2.3 MG/DL (1.5-2.5); SODIUM (NA) 140 MEQ/L (136-145)
[2017-06-20 07:32] LABS: ALKALINE PHOSPHATASE 84 U/L (45-117); TOTAL BILIRUBIN ADULT 0.4 MG/DL (0.2-1.0)
[2017-06-20] MEDS: INSULIN ASPART SUPPLEMENTAL SCALE SQ SCH ×4 (08:00→21:00)
[2017-06-20] MEDS: LOSARTAN 50 MG TAB PO SCH (09:00)
[2017-06-20] MEDS: CALCIUM/VITAMIN D 250 MG/125 U TAB PO SCH ×2 (09:28→22:13)
[2017-06-20] MEDS: DILTIAZEM-CD 240 MG CAP ER PO SCH ×2 (09:28→22:13)
[2017-06-20] MEDS: MULTIVITAMINS/MINERALS THERAPEUTIC TAB PO SCH ×2 (09:28→22:13)
[2017-06-20] MEDS: MONTELUKAST SODIUM 10 MG TAB PO SCH (09:29)
[2017-06-20] MEDS: DOCUSATE SODIUM 50 MG/SENNA 8.6 MG TAB PO SCH ×2 (09:29→22:13)
[2017-06-20] MEDS: traMADol HCL 50 MG TAB PO PRN ×3 (09:29→22:14)
[2017-06-20] MEDS: GABAPENTIN 100 MG CAP PO SCH ×3 (09:29→17:05)
[2017-06-20] MEDS: SODIUM CHLORIDE 0.9% FLUSH 10 ML FLUSH IV FLUSH SCH ×2 (09:31→22:13)
--- NOTE | 2017-06-20 10:08 | HHI.PR ---
Subjective Remarks Follow-up back surgery. States she is doing well on the bed to chair. She had a bowel movement yesterday. Objective Vitals Vital Signs Date Time Temp Pulse Resp B/P (MAP) Pulse Ox O2 Delivery O2 Flow Rate FiO2 06/20/17 08:00 98.4 77 16 150/63 (92) 97 06/20/17 05:20 99.1 88 17 134/61 96 06/20/17 02:11 99.5 79 17 121/56 95 06/20/17 01:56 99.2 84 17 111/56 94 06/19/17 23:31 98.9 88 18 130/59 (82) 97 06/19/17 20:00 98.5 95 18 113/58 (76) 94 06/19/17 16:08 97.7 82 18 135/62 (86) 94 06/19/17 12:08 97.1 80 18 132/58 (82) 96 I/O 06/19/17 06/19/17 06/19/17 06/20/17 06/20/17 06/20/17 07:00 15:00 23:00 07:00 15:00 23:00 Intake Total 360 ml 1300 ml 770 ml Output Total 820 ml 135 ml 10 ml Balance -460 ml 1165 ml 760 ml Intake Oral 360 ml 1300 ml 360 ml Packed Cells 400 ml Blood Product IV Normal Saline Flush 10 ml Output Urine Total 650 ml Drainage Total 170 ml 135 ml 10 ml # Voids 2 3 # Bowel Movements 0 0 Result Diagram: 06/20/17 0641 06/20/17 0641 Imaging Last Impressions Lumbar Spine X-Ray 06/17/17 0000 Signed Impressions: Service Date/Time: Saturday, June 17, 2017 09:57 - CONCLUSION: Lumbosacral fusion as above without evidence of acute complication. Grade 2 spondylolisthesis at L5/S1. Rufino Gonzalez MD Chest X-Ray 06/17/17 0000 Signed Impressions: Service Date/Time: Saturday, June 17, 2017 20:01 - CONCLUSION: Consolidation and small effusion of the left lung base. Endotracheal tube tip is approximately 4 cm above the cat. Rufino Gonzalez MD Objective Remarks GENERAL: Well-nourished, well-developed patient. SKIN: Warm and dry. CARDIOVASCULAR: Regular rate and rhythm without murmurs, gallops, or rubs. RESPIRATORY: Breath sounds equal bilaterally. No accessory muscle use. GASTROINTESTINAL: Abdomen soft, non-tender, nondistended. MUSCULOSKELETAL: No cyanosis, or edema. BACK: Nontender without obvious deformity. NEURO EXAM: Awake alert oriented 3, nonfocal grossly A/P Assessment and Plan Hypertension. Stable -Resume losartan and diltiazem Asthma. Stable -Montelukast Sodium -Albuterol Sulfate Diabetes type 2. 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 Counseled regarding narcotic -Gabapentin -Continue PT, wound care and DVT prophylaxis with early ambulation and medicine Dyslipidemia. Stable will hold statin secondary to elevated AST CKD stage 3. Nonoliguric. Improving renal indices. Will monitor Constipation. Stable continue Hailey-Colace DVT GI prophylaxis -Abdulkadir's and SCDs -Pharmacological DVT prophylaxis per surgeon -Early aggressive mobilization -ADA diet Discharge Planning Stable for discharge from medical standpoint Roland Escobar MD Jun 20, 2017 10:08
[2017-06-20] MEDS ORDERED: TRAM50 PO (12:08)
[2017-06-20] MEDS ORDERED: CYCL10TA PO (12:09)
--- NOTE | 2017-06-20 12:15 | HHI.DS ---
Discharge Summary Admission Date Jun 17, 2017 at 05:23 Discharge Date: Jun 20, 2017 Admitting Diagnosis L3-S1 stenosis with radiculopathy Diagnosis: (1) Lumbar radiculopathy Diagnosis: Principal ICD Codes: M54.16 - Radiculopathy, lumbar region (2) Lumbar arthropathy Diagnosis: Secondary ICD Codes: M46.96 - Unspecified inflammatory spondylopathy, lumbar region (3) Lumbar canal stenosis Diagnosis: Secondary ICD Codes: M48.061 - Spinal stenosis, lumbar region without neurogenic claudication (4) Lumbar and sacral spondyloarthritis Diagnosis: Secondary ICD Codes: M48.9 - Spondylopathy, unspecified Procedures L3-S1 decompression and instrumented fusion Brief History This is a 77 year old female patient admitted after undergoing L3-S1 decompression and instrumented fusion for persistent radiculopathy CBC/BMP: 06/20/17 0641 06/20/17 0641 Significant Findings Laboratory Tests Test 06/17/17 13:52 06/17/17 17:45 06/17/17 19:45 06/17/17 20:00 Hemoglobin 8.1 GM/DL (11.6-15.3) 10.1 GM/DL (11.6-15.3) Hematocrit 23.7 % (35.0-46.0) 30.0 % (35.0-46.0) Blood Gas Base Excess -2.1 mmol/L (-2-2) -5.7 mmol/L (-2-2) Arterial Blood pH 7.35 (7.380-7.420) 7.27 (7.380-7.420) Arterial Blood Partial Pressure O2 166 mmHg (61-120) Arterial Blood Oxygen Content 10.3 Vol % (12.0-20.0) Blood Gas Hemoglobin 7.4 G/DL (12.0-16.0) 10.9 G/DL (12.0-16.0) Blood Gas HCO3 20 mmol/L (22-26) Arterial Blood Partial Pressure CO2 45 mmHg (38-42) White Blood Count 14.7 TH/MM3 (4.0-11.0) Red Blood Count 3.40 MIL/MM3 (4.00-5.30) Platelet Count 147 TH/MM3 (150-450) Neutrophils (%) (Auto) 86.5 % (16.0-70.0) Lymphocytes (%) (Auto) 8.2 % (9.0-44.0) Neutrophils # (Auto) 12.7 TH/MM3 (1.8-7.7) Fibrinogen 226 mg/dL (227-377) Test 06/17/17 22:00 06/18/17 04:50 06/19/17 10:24 06/20/17 06:41 Red Blood Count 3.35 MIL/MM3 (4.00-5.30) 2.67 MIL/MM3 (4.00-5.30) 2.89 MIL/MM3 (4.00-5.30) Hemoglobin 10.1 GM/DL (11.6-15.3) 8.1 GM/DL (11.6-15.3) 8.9 GM/DL (11.6-15.3) Hematocrit 29.3 % (35.0-46.0) 23.9 % (35.0-46.0) 25.5 % (35.0-46.0) Platelet Count 136 TH/MM3 (150-450) 114 TH/MM3 (150-450) 107 TH/MM3 (150-450) Neutrophils (%) (Auto) 91.7 % (16.0-70.0) 74.8 % (16.0-70.0) 73.6 % (16.0-70.0) Lymphocytes (%) (Auto) 5.2 % (9.0-44.0) Neutrophils # (Auto) 8.9 TH/MM3 (1.8-7.7) 7.9 TH/MM3 (1.8-7.7) Lymphocytes # (Auto) 0.5 TH/MM3 (1.0-4.8) Blood Urea Nitrogen 29 MG/DL (7-18) 31 MG/DL (7-18) Creatinine 1.47 MG/DL (0.50-1.00) 1.16 MG/DL (0.50-1.00) Random Glucose 182 MG/DL (74-106) 131 MG/DL (74-106) Total Protein 4.9 GM/DL (6.4-8.2) 5.0 GM/DL (6.4-8.2) Albumin 2.3 GM/DL (3.4-5.0) 2.2 GM/DL (3.4-5.0) Calcium Level 7.1 MG/DL (8.5-10.1) 7.8 MG/DL (8.5-10.1) Aspartate Amino Transf (AST/SGOT) 91 U/L (15-37) 84 U/L (15-37) Chloride Level 108 MEQ/L (98-107) Estimat Glomerular Filtration Rate 34 ML/MIN (>89) 45 ML/MIN (>89) Protein Corrected Calcium 8.3 MG/DL (8.5-10.1) Monocytes (%) (Auto) 8.5 % (0.0-8.0) PE at Discharge awake, alert, no acute distress Bilateral lower extremities: 5 out of 5 strength EHL, FHL, tib ant, gastrocs, hamstrings and quads. Sensation appears grossly intact. Brisk cap refill. Negative Homans. Dressing intact over her spine and drain remains in place. Hospital Course Patient was admitted after procedure to the [facility] for close monitoring. POD#1 patient was transferred to the orthopedic floor and mobilized as tolerated. Her pain was controlled with IV and oral pain meds. She gradually increased her activities and was felt safe for discharge. Pt Condition on Discharge: Good Discharge Disposition: Discharge Home Discharge Instructions Diet Instructions: As Tolerated, No Restrictions Activities You Can Perform: Regular-No Restrictions Activities to Avoid: Lifting/Bending, Strenuous Activity Breanna Alfaro MD Jun 20, 2017 12:15
[2017-06-20] MEDS ORDERED: WALKER WHEELS/F1 MIS (12:24)
--- NOTE | 2017-06-20 12:45 | PD.ORT.PN ---
Subjective Subjective Remarks Patient resting comfortably. States her pain is well-controlled. Patient is sitting at bedside chair today. She states she is interested in going home. Objective Vitals Vital Signs Date Time Temp Pulse Resp B/P (MAP) Pulse Ox O2 Delivery O2 Flow Rate FiO2 06/20/17 08:00 98.4 77 16 150/63 (92) 97 06/20/17 05:20 99.1 88 17 134/61 96 06/20/17 02:11 99.5 79 17 121/56 95 06/20/17 01:56 99.2 84 17 111/56 94 06/19/17 23:31 98.9 88 18 130/59 (82) 97 06/19/17 20:00 98.5 95 18 113/58 (76) 94 06/19/17 16:08 97.7 82 18 135/62 (86) 94 I/O 06/19/17 06/19/17 06/19/17 06/20/17 06/20/17 06/20/17 07:00 15:00 23:00 07:00 15:00 23:00 Intake Total 360 ml 1300 ml 770 ml Output Total 820 ml 135 ml 10 ml Balance -460 ml 1165 ml 760 ml Intake Oral 360 ml 1300 ml 360 ml Packed Cells 400 ml Blood Product IV Normal Saline Flush 10 ml Output Urine Total 650 ml Drainage Total 170 ml 135 ml 10 ml # Voids 2 3 # Bowel Movements 0 0 Result Diagram: 06/20/17 0641 06/20/17640 Procedures L3-S1 decompression and instrumented fusion Objective Remarks awake, alert, no acute distress Bilateral lower extremities: 5 out of 5 strength EHL, FHL, tib ant, gastrocs, hamstrings and quads. Sensation appears grossly intact. Brisk cap refill. Negative Homans. Dressing intact over her spine and drain remains in place. Assessment & Plan Problem List: (1) Lumbar radiculopathy ICD Codes: M54.16 - Radiculopathy, lumbar region (2) Lumbar arthropathy ICD Codes: M46.96 - Unspecified inflammatory spondylopathy, lumbar region (3) Lumbar canal stenosis ICD Codes: M48.061 - Spinal stenosis, lumbar region without neurogenic claudication (4) Lumbar and sacral spondyloarthritis ICD Codes: M48.9 - Spondylopathy, unspecified Assessment and Plan 77-year-old female, postop day 3 status post L3-S1 decompression with instrumented fusion 1. When patient is out of bed should have her back brace on. Patient can sit on edge of bed to put brace on. No significant bending, lifting or twisting. PT for mobilization 2. Drain to be removed today. Dressing can be changed at that same time if needed. 3. Mechanical DVT prophylaxis. No chemical anticoagulation given recent spine surgery 4. Hemoglobin 8.9 after transfusion yesterday. 5. pain control with oral pain medications, doing well 6. Discharge home this afternoon. She will require walker prior to discharge. Breanna Alfaro MD Jun 20, 2017 12:45
[2017-06-21 04:30] VITALS: TEMP 99.2
[2017-06-21] MEDS: traMADol HCL 50 MG TAB PO PRN ×2 (04:47→12:07)
[2017-06-21 06:31] VITALS: BP_SYST 109; BP_SYST 134; BP_DIAS 62; BP_DIAS 63; PULSE 86; RESP 18; TEMP 98; TEMP 99; O2SAT 94
--- NOTE | 2017-06-21 07:20 | PD.ORT.PN ---
Subjective Subjective Remarks Progressing slowly. Objective Vitals Vital Signs Date Time Temp Pulse Resp B/P (MAP) Pulse Ox O2 Delivery O2 Flow Rate FiO2 06/21/17 06:31 98.0 86 18 134/62 (86) 94 06/21/17 06:31 99.0 86 18 109/63 (78) 94 06/21/17 04:30 99.2 06/20/17 23:07 99.4 79 18 137/62 (87) 94 06/20/17 19:08 98.7 85 18 131/64 (86) 97 06/20/17 16:00 98.0 88 16 131/54 (79) 96 06/20/17 12:00 98.5 83 16 155/67 (96) 94 06/20/17 08:00 98.4 77 16 150/63 (92) 97 I/O 06/20/17 06/20/17 06/20/17 06/21/17 06/21/17 06/21/17 07:00 15:00 23:00 07:00 15:00 23:00 Intake Total 770 ml 600 ml 360 ml Output Total 10 ml Balance 760 ml 600 ml 360 ml Intake Oral 360 ml 600 ml 360 ml Packed Cells 400 ml Blood Product IV Normal Saline Flush 10 ml Drainage Total 10 ml # Voids 3 4 2 # Bowel Movements 0 0 Result Diagram: 06/20/1764006/20/17640 Procedures L3-S1 decompression and instrumented fusion Objective Remarks awake, alert, no acute distress Bilateral lower extremities: 5 out of 5 strength EHL, FHL, tib ant, gastrocs, hamstrings and quads. Sensation appears grossly intact. Brisk cap refill. Negative Homans. Dressing intact over her spine and drain remains in place. Assessment & Plan Problem List: (1) Lumbar radiculopathy ICD Codes: M54.16 - Radiculopathy, lumbar region (2) Lumbar arthropathy ICD Codes: M46.96 - Unspecified inflammatory spondylopathy, lumbar region (3) Lumbar canal stenosis ICD Codes: M48.061 - Spinal stenosis, lumbar region without neurogenic claudication (4) Lumbar and sacral spondyloarthritis ICD Codes: M48.9 - Spondylopathy, unspecified Assessment and Plan 77-year-old female, postop day 4 status post L3-S1 decompression with instrumented fusion When patient is out of bed should have her back brace on. Patient can sit on edge of bed to put brace on. No significant bending, lifting or twisting. PT for mobilization Mechanical DVT prophylaxis. No chemical anticoagulation given recent spine surgery pain control with oral pain medications, doing well Discharge home this afternoon. She will require walker prior to discharge. Scott Hanks Jr. ALIS Jun 21, 2017 07:20
[2017-06-21] MEDS: LOSARTAN 50 MG TAB PO SCH (08:52)
[2017-06-21] MEDS: MONTELUKAST SODIUM 10 MG TAB PO SCH (08:53)
[2017-06-21] MEDS: DILTIAZEM-CD 240 MG CAP ER PO SCH (08:53)
[2017-06-21] MEDS: MULTIVITAMINS/MINERALS THERAPEUTIC TAB PO SCH (08:53)
[2017-06-21] MEDS: GABAPENTIN 100 MG CAP PO SCH (08:53)
[2017-06-21] MEDS: CALCIUM/VITAMIN D 250 MG/125 U TAB PO SCH (08:53)
[2017-06-21] MEDS: DOCUSATE SODIUM 50 MG/SENNA 8.6 MG TAB PO SCH (08:53)
--- NOTE | 2017-06-21 09:23 | HHI.PR ---
Subjective Remarks Follow-up back surgery. States she is doing well. Pain under control. She wants to go home. She had a bowel movement yesterday. Discussed with nursing Objective Vitals Vital Signs Date Time Temp Pulse Resp B/P (MAP) Pulse Ox O2 Delivery O2 Flow Rate FiO2 06/21/17 06:31 98.0 86 18 134/62 (86) 94 06/21/17 06:31 99.0 86 18 109/63 (78) 94 06/21/17 04:30 99.2 06/20/17 23:07 99.4 79 18 137/62 (87) 94 06/20/17 19:08 98.7 85 18 131/64 (86) 97 06/20/17 16:00 98.0 88 16 131/54 (79) 96 06/20/17 12:00 98.5 83 16 155/67 (96) 94 I/O 06/20/17 06/20/17 06/20/17 06/21/17 06/21/17 06/21/17 07:00 15:00 23:00 07:00 15:00 23:00 Intake Total 770 ml 600 ml 360 ml Output Total 10 ml Balance 760 ml 600 ml 360 ml Intake Oral 360 ml 600 ml 360 ml Packed Cells 400 ml Blood Product IV Normal Saline Flush 10 ml Drainage Total 10 ml # Voids 3 4 2 # Bowel Movements 0 0 Result Diagram: 06/20/17 0641 06/20/17 0641 Imaging Last Impressions Lumbar Spine X-Ray 06/17/17 0000 Signed Impressions: Service Date/Time: Saturday, June 17, 2017 09:57 - CONCLUSION: Lumbosacral fusion as above without evidence of acute complication. Grade 2 spondylolisthesis at L5/S1. Rufino Gonzalez MD Chest X-Ray 06/17/17 0000 Signed Impressions: Service Date/Time: Saturday, June 17, 2017 20:01 - CONCLUSION: Consolidation and small effusion of the left lung base. Endotracheal tube tip is approximately 4 cm above the cat. Rufino Gonzalez MD Objective Remarks GENERAL: Well-nourished, well-developed patient. SKIN: Warm and dry. CARDIOVASCULAR: Regular rate and rhythm without murmurs, gallops, or rubs. RESPIRATORY: Breath sounds equal bilaterally. No accessory muscle use. GASTROINTESTINAL: Abdomen soft, non-tender, nondistended. MUSCULOSKELETAL: No cyanosis, or edema. BACK: Nontender without obvious deformity. NEURO EXAM: Awake alert oriented 3, nonfocal grossly A/P Assessment and Plan Hypertension. Stable -Resume losartan and diltiazem Asthma. Stable -Montelukast Sodium -Albuterol Sulfate Diabetes type 2. 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 Counseled regarding narcotic -Gabapentin -Continue PT, wound care and DVT prophylaxis with early ambulation and medicine Dyslipidemia. Stable will hold statin secondary to elevated AST CKD stage 3. Nonoliguric. Improving renal indices. Will monitor Constipation. Stable continue Hailey-Colace DVT GI prophylaxis -Abdulkadir's and SCDs -Pharmacological DVT prophylaxis per surgeon -Early aggressive mobilization -ADA diet Discharge Planning Stable for discharge from medical standpoint Roland Escobar MD Jun 21, 2017 09:23
== END 2017-06-21 12:23 | disposition home health service (06) | DRG 455 ==
LOC: HSDI 06-17 05:23 → N03A 06-17 21:47 → N06A 06-18 17:44
PROVIDERS: ADMIT Orthopaedic Surgery Orthopaedic Surgery of the Spine; ATTEND Orthopaedic Surgery Orthopaedic Surgery of the Spine
PROC: 0SG30AJ Fusion of Lumbosacral Joint with Interbody Fusion Device, Posterior Approach, Anterior Column, Open Approach (ICD-10-PCS; 2017-06-17)
PROC: 0ST20ZZ Resection of Lumbar Vertebral Disc, Open Approach (ICD-10-PCS; 2017-06-17)
PROC: 0SG00AJ Fusion of Lumbar Vertebral Joint with Interbody Fusion Device, Posterior Approach, Anterior Column, Open Approach (ICD-10-PCS; 2017-06-17)
PROC: 30233N1 Transfusion of Nonautologous Red Blood Cells into Peripheral Vein, Percutaneous Approach (ICD-10-PCS; 2017-06-17)
PROC: 5A1935Z Respiratory Ventilation, Less than 24 Consecutive Hours (ICD-10-PCS; 2017-06-17)
PROC: 0SG3071 Fusion of Lumbosacral Joint with Autologous Tissue Substitute, Posterior Approach, Posterior Column, Open Approach (ICD-10-PCS; 2017-06-17)
PROC: 0SG10AJ Fusion of 2 or more Lumbar Vertebral Joints with Interbody Fusion Device, Posterior Approach, Anterior Column, Open Approach (ICD-10-PCS; 2017-06-17)
PROC: 0SG10AJ Fusion of 2 or more Lumbar Vertebral Joints with Interbody Fusion Device, Posterior Approach, Anterior Column, Open Approach (ICD-10-PCS; principal; 2017-06-17 07:45)
DX: M43.17 Spondylolisthesis, lumbosacral region (principal); E11.22 Type 2 diabetes mellitus with diabetic chronic kidney disease; N18.3 Chronic kidney disease, stage 3 (moderate); I12.9 Hypertensive chronic kidney disease with stage 1 through stage 4 chronic kidney disease, or unspecified chronic kidney disease; M47.26 Other spondylosis with radiculopathy, lumbar region; M43.16 Spondylolisthesis, lumbar region; M48.061 Spinal stenosis, lumbar region without neurogenic claudication; J45.909 Unspecified asthma, uncomplicated; E78.5 Hyperlipidemia, unspecified; Z96.651 Presence of right artificial knee joint; Z87.891 Personal history of nicotine dependence; Z82.3 Family history of stroke; Z80.9 Family history of malignant neoplasm, unspecified; K59.00 Constipation, unspecified
CPT/HCPCS: 36430; 71045; 72100; 76000; 80053; 82805; 82948; 83735; 84100; 85014; 85018; 85025; 85384; 85610; 86850; 86900; 86901; 86920; 87641; 94002; C1713; J0131; J0330; J0690; J1100; J1580; J1815; J2250; J2270; J2370; J2405; J3010; J3370; J7120; L0200; L0484; P9016